=== PATIENT | male | born 2000 | race Caucasian/White ===

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

== ENCOUNTER → 2023-11-05 | Outpatient (REF) | LOC: M EMP 14:19 | PROVIDERS: ATTEND Family Medicine | DX: Z11.52 Encounter for screening for COVID-19 (principal) ==

== ENCOUNTER 2024-07-08 08:07 | Emergency (ER) | payer OTHER, MEDICAID ==
[~2024-07-08] VITALS: Ht 180.3 cm; Wt 102.3 kg
[2024-07-08] MEDS: KETOROLAC 60MG 2ML VIAL IM ONE (09:51)
[2024-07-08] MEDS: PERCOCET 5MG/325MG TAB PO ONE ×2 (10:38→14:24)
[2024-07-08] MEDS: ONDANSETRON 4MG ORAL DISINTEGRATING TAB PO ONE (10:51)
[2024-07-08] MEDS ORDERED: ISOVUE-370 76% 100ML VIAL As Ordered ONE (11:00)
[2024-07-08 14:50] VITALS: BP 125/73; TEMP 97.8; O2SAT 100
== END 2024-07-08 14:54 | disposition home or self-care (01) ==
LOC: M ED 08:07
DX: S83.422A Sprain of lateral collateral ligament of left knee, initial encounter (principal); S72.422A Displaced fracture of lateral condyle of left femur, initial encounter for closed fracture; M25.462 Effusion, left knee; M25.062 Hemarthrosis, left knee; X50.0XXA Overexertion from strenuous movement or load, initial encounter; F17.200 Nicotine dependence, unspecified, uncomplicated; Y92.9 Unspecified place or not applicable; Y93.89 Activity, other specified; Y99.0 Civilian activity done for income or pay; Z79.52 Long term (current) use of systemic steroids; Z79.899 Other long term (current) drug therapy
CPT/HCPCS: 73564; 73706; 73721; 80047; 96372; 99284; J1885; Q9967

== ENCOUNTER 2024-08-14 06:56 | Outpatient (RCR) | payer OTHER, MEDICAID | END 2024-08-18 | LOC: M PT 06:56 | PROVIDERS: ATTEND Orthopaedic Surgery | DX: M25.562 Pain in left knee (principal) ==